=== PATIENT | female | born 1945 | race Caucasian/White ===

== ENCOUNTER 2017-12-02 19:23 | Inpatient (IN) | payer OTHER ==
[2017-12-02] MEDS ORDERED: ONDANSETRON 4 MG/2 ML VIAL ONE (19:28)
--- NOTE | 2017-12-02 19:50 | PDOC ---
History of Present Illness - General Chief Complaint: Blood Pressure Problem Stated Complaint: NEAR SYNCOPE Time Seen by Provider: 12/02/17 19:40 History Source: Patient Exam Limitations: No Limitations - History of Present Illness Initial Comments: 12/02/17 21:00 72f with pmh of hypotension presents to the ed for syncopal episode and vomiting after eating dinner and having a couple glasses of wine before losing consciousness. She had multiple episodes of the past where she passed out abruptly in the past. Also complains of multiple episodes of diarrhea (at least 5, every Past History - Past Medical History Allergies/Adverse Reactions: Allergies Allergy/AdvReac Type Severity Reaction Status Date / Time No Known Allergies Allergy Verified 07/19/12 21:16 Home Medications: Ambulatory Orders Simvastatin [Zocor] 5 mg PO HS 07/09/12 Valsartan/Hydrochlorothiazide [Diovan Hct 80-12.5 mg Tablet] 1 combo PO DAILY metFORMIN XR [Glucophage *Xr* -] 500 mg PO DAILY 07/09/12 Meclizine HCl [Antivert -] 25 mg PO TID #0 tablet 07/10/12 Ondansetron [Zofran] 4 mg PO BID PRN #10 tablet 07/10/12 COPD: No Diabetes: Yes HTN: Yes Hypercholesterolemia: Yes - Surgical History Appendectomy: Yes Cholecystectomy: Yes - Suicide/Smoking/Psychosocial Hx Smoking Status: No Smoking History: Unknown if ever smoked Number of Cigarettes Smoked Daily: 0 Review of Systems - Review of Systems Able to Perform ROS?: Yes Is the patient limited Amharic proficient: No Constitutional: No: Symptoms Reported HEENTM: No: Symptoms Reported Respiratory: No: Symptoms reported Cardiac (ROS): No: Symptoms Reported ABD/GI: Yes: See HPI : No: Symptoms Reported Neurological: No: Symptoms reported *Physical Exam - Vital Signs Last Vital Signs Temp Pulse Resp BP Pulse Ox 97.4 F L 62 20 66/39 92 L 12/02/17 19:35 12/02/17 19:35 12/02/17 19:35 12/02/17 19:35 12/02/17 19:35 - Physical Exam General Appearance: Yes: Nourished, Appropriately Dressed, Mild Distress HEENT: positive: EOMI, AYUSH, Normal ENT Inspection Respiratory/Chest: positive: Lungs Clear, Normal Breath Sounds. negative: Chest Tender, Respiratory Distress Cardiovascular: positive: Regular Rhythm, Regular Rate, S1, S2 Gastrointestinal/Abdominal: positive: Normal Bowel Sounds, Flat, Soft, Increased Bowel Sounds. negative: Tender Extremity: positive: Normal Capillary Refill, Normal Inspection, Normal Range of Motion Integumentary: positive: Dry, Warm, Pale Neurologic: positive: Fully Oriented, Alert, Normal Mood/Affect, Normal Response , Motor Strength / ED Treatment Course - LABORATORY CBC & Chemistry Diagram: 12/02/17 19:15 12/02/17 19:15 Medical Decision Making - Medical Decision Making 12/02/17 23:25 PAtient started to have episodes of bloody stools in the ED. Low BP possibly due to loss of fluids from vomiting and diarrhea. Ct head for syncope: nearly comply opacification of maxillary sinus consistent with chronic sinusitus. No intracranial bleed or mass. White count mildly elevated, potassium 3.2 corrected with oral K. Spoke to Dr. Otto who will admit to [facility]. EKG: Normal sinus rhythm, cannot rule out anterior infarct, age undetermined CT abdomen and pelvis pending. . 12/02/17 23:31 *DC/Admit/Observation/Transfer Diagnosis at time of Disposition: Bloody diarrhea, Hypotension, Syncope - Discharge Dispostion Condition at time of disposition: Stable Admit: Yes - Referrals - Patient Instructions - Post Discharge Activity
[2017-12-02 20:13] LABS: BASO % 0.5 % (0-2.0); HEMATOCRIT 36.6 % (32.4-45.2); HEMOGLOBIN 12.5 GM/dL (10.7-15.3); LYMPH % 50.4 % (8-40); MCH 30.6 pg (25.7-33.7); MCHC 34.2 g/dl (32.0-36.0); MEAN CELL VOLUME 89.5 fl (80-96); MEAN PLT VOLUME 9.5 fl (7.5-11.1); MONO % 4.1 % (3.8-10.2); PLATELET COUNT 294 K/MM3 (134-434); RBC 4.09 M/mm3 (3.60-5.2); RDW 14.7 % (11.6-15.6); WHITE BLOOD COUNT 13.7 K/mm3 (4.0-10.0)
[2017-12-02 20:35] LABS: ALBUMIN 4.1 g/dl (3.4-5.0); ANION GAP 9 (8-16); BILIRUBIN,TOTAL 0.3 mg/dL (0.2-1.0); BLOOD UREA NITROGEN 34 mg/dL (7-18); CALCIUM 9.8 mg/dL (8.5-10.1); CHLORIDE 105 mmol/L (98-107); CO2 23 mmol/L (21-32); CREATININE 1.4 mg/dL (0.55-1.02); GLUCOSE,RANDOM 147 mg/dL (74-106); POTASSIUM 3.2 mmol/L (3.5-5.1); SGOT/AST 32 U/L (15-37); SODIUM 137 mmol/L (136-145); TOT PROT 7.5 g/dl (6.4-8.2)
[2017-12-02 20:38] LABS: ALK PHOS 97 U/L (45-117); SGPT/ALT 34 U/L (12-78)
--- NOTE | 2017-12-02 20:44 | PDOC ---
Attending Attestation - Resident Resident Name: Martir Danielson - ED Attending Attestation I have performed the following: I have examined & evaluated the patient, The case was reviewed & discussed with the resident, I agree w/resident's findings & plan - HPI HPI: 12/03/17 03:15 Pt comes with syncope and nausea and vomiting. Labs in the ER are WNL, however , while in the ER pt [id number] a bloody stool, and she will be admitted for GI bleed with syncope. - Physicial Exam PE: 12/03/17 03:17 Agree with resident exam. - Medical Decision Making 12/02/17 22:06 Patient Name: BRIDGER MARIE THIS IS A PRELIMINARY REPORT FROM [facility] IMAGES: 131 EXAM DATE AND TIME: 2017-12-02 21:10:42 EXAM: CT Head Without Intravenous Contrast CLINICAL HISTORY: syncope TECHNIQUE: Axial computed tomography images of the head/brain without intravenous contrast. This CT exam was performed using one or more of the following dose reduction techniques: Automated exposure control, Adjustment of the mA and/or kV according to patient size, Use of iterative reconstruction technique. COMPARISON: No relevant prior studies available. FINDINGS: BRAIN: NO hemorrhage or mass. VENTRICLES: The ventricles are minimally prominent. BONES/JOINTS: Calvarium and skull base demonstrate NO acute changes. SOFT TISSUES: Minimal soft tissue contusion and/or edema is present. This is more prominent anteriorly on the RIGHT. SINUSES: Nearly complete opacification of the LEFT maxillary sinus. Calcification/increased density in the sinus. Thickening of the sinus bennett. MASTOID AIR CELLS: Unremarkable as visualized. NO significant mucosal thickening or opacification. IMPRESSION: 1. Nearly complete opacification of the LEFT maxillary sinus. Calcification/ increased density in the sinus. Thickening of the sinus bennett. Findings are consistent with chronic sinusitis. Please correlate with any known history and/or clinical findings. 2. Soft tissue edema and/or contusion as noted. 3. NO evidence of intracranial hemorrhage or mass. 12/03/17 03:17 Pt will be admitted for GI bleed. CT scan ordered and still pending 12/03/17 03:51 Patient Name: BRIDGER MARIE THIS IS A PRELIMINARY REPORT FROM [facility] DATE OF SERVICE: 2017-12-03 02:32:09 IMAGES: 471 EXAM: ABDOMEN \T\ PELVIS CT W/O CONTR HISTORY: Bloody diarrhea COMPARISON: None. FINDINGS: There is a 4 mm left lower lobe nodule. The visualized cardiac chambers are normal size and configuration. Status post cholecystectomy without biliary duct dilation. Normal unenhanced pancreas, spleen, adrenal glands and kidneys. The stomach and small bowel are normal. There is moderate inflammation of the descending colon and sigmoid which may be due to infection, inflammatory bowel disease or ischemia. Minimal diverticulosis is noted, but this does not appear to represent diverticulitis. No bowel obstruction, abscess or free air. There is no aortic aneurysm. There is no significant retroperitoneal lymphadenopathy. There is no evidence of appendicitis, although the appendix is not clearly visualized. The uterus and adnexal structures are normal. Urinary bladder is unremarkable. There is no pelvic free fluid. No discrete pelvic lymphadenopathy is identified. IMPRESSION: Moderate inflammation of the descending and sigmoid colon could be due to infection, inflammatory bowel disease or bowel ischemia 4 mm left lower lobe nodule should be compared to prior exams. THIS DOCUMENT HAS BEEN ELECTRONICALLY SIGNED <Jessica Leal - Last Filed: 12/03/17 03:52> Heart Score/ECG Review - ECG Intrepretation Comment:: 12/02/17 21:58 Normal sinus rhythm cannot rule out anterior infarct, age undetermined Abnormal ECG <Rocael Topete - Last Filed: 12/02/17 21:58>
[2017-12-02] MEDS ORDERED: POTASSIUM CITRATE/CITRIC ACID 2 MEQ/ML ML PO ONE (20:59)
[2017-12-02] MEDS ORDERED: POTASSIUM CHLORIDE TABS 20 MEQ TABLET.ER (FP) PO ONE ×2 (21:30→21:57)
[2017-12-02] MEDS ORDERED: SODIUM CHLORIDE 1,000 ML IV STA (21:52)
--- NOTE | 2017-12-02 23:15 | PN ---
Teaching Attending Note Name of Resident: Jairo Tariq ATTENDING PHYSICIAN STATEMENT I saw and evaluated the patient. I reviewed the resident's note and discussed the case with the resident. I agree with the resident's findings and plan as documented. SUBJECTIVE: 72 F with Pmhx. of DM, HLD, Hypotension who presents with loss of conscioussness. Notes she was having clams and finished one 1/2 glass of wine at a restaurant when she lost conscioussness for several seconds. Prior to that she had vomited at the restaurant and had diarrhea. She denies any chest pain, pressure, or palpitations prior. Denies any current chest pain, pressure or shortness of breath. States she had her first episode of bloody diarrhea in the hospital here. Denies any fevers or chills. No current nausea or vomiting. States she is currently having diarrhea with bright red blood mixed in. States she has had poor PO inake over the course of several days. Last Colonoscopy was 2 years ago and was negative according to pt.. ED COURSE: Pt. had one episode of blood mixed with stool as pe ER resident. OBJECTIVE: Physical: VS: Vital Signs Period Temp Pulse Resp BP Sys/Up Pulse Ox Last 24 Hr 97.4 F 62-86 20 66-104/39-60 92 GEN: NAD, Resting in bed, AA0X3 HEENT: NCAT, PERRL, Throat without erythema or exudates CARD: RRR S1, S2 RESP: CTAB ABD: Bsx4. NTD to palpation EXT:- C/C/E RECTAL: Pt. Deferred as she was on commode CBCD WBC 13.7 K/mm3 (4.0-10.0) H 12/02/17 19:15 RBC 4.09 M/mm3 (3.60-5.2) 12/02/17 19:15 Hgb 12.5 GM/dL (10.7-15.3) 12/02/17 19:15 Hct 36.6 % (32.4-45.2) 12/02/17 19:15 MCV 89.5 fl (80-96) 12/02/17 19:15 MCHC 34.2 g/dl (32.0-36.0) 12/02/17 19:15 RDW 14.7 % (11.6-15.6) 12/02/17 19:15 Plt Count 294 K/MM3 (134-434) 12/02/17 19:15 MPV 9.5 fl (7.5-11.1) 12/02/17 19:15 CMP Sodium 137 mmol/L (136-145) 12/02/17 19:15 Potassium 3.2 mmol/L (3.5-5.1) L 12/02/17 19:15 Chloride 105 mmol/L (98-107) 12/02/17 19:15 Carbon Dioxide 23 mmol/L (21-32) 12/02/17 19:15 Anion Gap 9 (8-16) 12/02/17 19:15 BUN 34 mg/dL (7-18) H 12/02/17 19:15 Creatinine 1.4 mg/dL (0.55-1.02) H 12/02/17 19:15 Creat Clearance w eGFR 36.86 (>60) 12/02/17 19:15 Random Glucose 147 mg/dL (74-106) H 12/02/17 19:15 Calcium 9.8 mg/dL (8.5-10.1) 12/02/17 19:15 Total Bilirubin 0.3 mg/dL (0.2-1.0) 12/02/17 19:15 AST 32 U/L (15-37) 12/02/17 19:15 ALT 34 U/L (12-78) 12/02/17 19:15 Alkaline Phosphatase 97 U/L (45-117) 12/02/17 19:15 Total Protein 7.5 g/dl (6.4-8.2) 12/02/17 19:15 Albumin 4.1 g/dl (3.4-5.0) 12/02/17 19:15 CARDIAC ENZYMES Creatine Kinase 90 IU/L (26-192) 12/02/17 19:15 Troponin I < 0.02 ng/ml (0.00-0.05) 12/02/17 19:15 EKG: NSR QtC 460 CXR:PENDING STOOL OCCULT: PENDING CT HEAD- Negative- PENDING FINAL READ ASSESSMENT AND PLAN: 72 F with Pmhx. of DM, HLD, Hypotension who presents with loss of conscioussness , being admitted for syncope and rectal bleed. 1.) Syncope - Most likley vasovagal ddx: Cardiogenic/Neurogenic - Orthostatic VS - Trend Trop/EKG - ECHO/Carotid US - IVF - KEEP MAP >75 2.) Diarrhea/Vomiting - Most likely Viral gastronteritis - Stool Cx - CT ABD wo Con - IVF 3.) Rectal Bleed - Infectious vs. Diverticular/LGIB/inflammation - FU Stool Occult - Trend H&H Q 8 - Keep HgB >7 - Coags, Type & Screen - GI consult 4.) DM - FS - RAISS - Hold Metformin 5.) TIM - U Lytes - IVF - Hold Metformin 6.) Hypokalemia - Replete - Check Mg2+ 7.) Dvt Ppx - Scds Place in Mp[facility]-Tele
[2017-12-03] MEDS ORDERED: SODIUM CHLORIDE 1,000 ML IV SCH (00:15)
[2017-12-03] MEDS ORDERED: POTASSIUM CHLORIDE TABS 20 MEQ TABLET.ER (FP) PO ONE ×2 (00:20→00:49)
[2017-12-03] MEDS ORDERED: ONDANSETRON 4 MG/2 ML VIAL IVPUSH PRN ×2 (00:21→05:33)
[2017-12-03] MEDS ORDERED: ONDANSETRON 4 MG/2 ML VIAL ONE (00:49)
[2017-12-03 01:21] LABS: INR 0.96 (0.82-1.09); PROTHROMBIN TIME (PATIENT) 10.9 SEC (9.7-13.0)
--- NOTE | 2017-12-03 01:21 | HP ---
CHIEF COMPLAINT: syncope PCP: Dr. Odell HISTORY OF PRESENT ILLNESS: Patient is a 72 yo F with a PMHx of HTN, presented to the ED after a syncopal episode after eating dinner at a restaurant. Patient said she finished eating dinner (clams) and was on her second glass of wine when she started having the "sweats". She said she felt chills and was nauseas and suddenly started having diarrhea and vomiting with abdominal pain. She later felt dizzy and had a syncopal episode which she said lasted around 30 seconds. Patient said she had similar episodes in the past but without the GI symptoms. She said she once became hypotensive in 2011 and lost consciousness requiring stitches to her head. Patient also noticed BRBPR once she arrived to the hospital. Patient also reports not drinking a lot of water lately. 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 She denies sob,chest pain, tongue biting, loss of bladder control, lightheadedness, dysuria, recent travel, sick contacts. Last colonoscopy was 2 years ago where she was told to come back in 5 years. ER course was notable for: (1) BP 66/39 (2) CT head: unremarkable (3) Blood mixed with stool as per ED resident Recent Travel: n/a PAST MEDICAL HISTORY: HTN Social History: Smoking: denies Alcohol: occasionally Drugs: denies Family History: Allergies No Known Allergies Allergy (Verified 07/19/12 21:16) HOME MEDICATIONS: Home Medications Medication Instructions Recorded Lisinopril/Hydrochlorothiazide 1 each PO DAILY 12/03/17 [Lisinopril-Hctz 10-12.5 mg Tab] Simvastatin 20 mg PO DAILY 12/03/17 REVIEW OF SYSTEMS CONSTITUTIONAL: chills, diaphoresis, Absent: fever, generalized weakness, malaise, loss of appetite, weight change HEENT: Absent: rhinorrhea, nasal congestion, throat pain, throat swelling, difficulty swallowing, mouth swelling, ear pain, eye pain, visual changes CARDIOVASCULAR: syncope Absent: chest pain, palpitations, irregular heart rate, lightheadedness, peripheral edema RESPIRATORY: Absent: shortness of breath, dyspnea with exertion, orthopnea, wheezing, stridor, hemoptysis GASTROINTESTINAL: abdominal pain, nausea, vomiting, hematochezia, diarrhea Absent: abdominal distension,constipation, melena, GENITOURINARY: Absent: dysuria, frequency, urgency, hesitancy, hematuria, flank pain, genital pain NEUROLOGIC: dizziness, headache Absent: focal weakness or paresthesias, unsteady gait, seizure, mental status changes, bladder or bowel incontinence PHYSICAL EXAMINATION Vital Signs - 24 hr 12/02/17 12/02/17 12/02/17 19:35 19:55 20:06 Temperature 97.4 F L Pulse Rate 62 Pulse Rate [ Right side Standing] Pulse Rate [ Right side Supine] Respiratory 20 Rate Blood Pressure 66/39 Blood Pressure 79/46 94/60 [Right Arm] Blood Pressure [Right side Standing] Blood Pressure [Right side Supine] O2 Sat by Pulse 92 L Oximetry (%) 12/02/17 12/02/17 20:19 22:38 Temperature Pulse Rate Pulse Rate [ 86 Right side Standing] Pulse Rate [ 76 Right side Supine] Respiratory Rate Blood Pressure Blood Pressure 104/50 [Right Arm] Blood Pressure 87/51 [Right side Standing] Blood Pressure 99/47 [Right side Supine] O2 Sat by Pulse Oximetry (%) GENERAL: Awake, alert, and fully oriented, in no acute distress. HEAD: Normal with no signs of trauma. EYES: Pupils equal, round and reactive to light, extraocular movements intact, sclera anicteric, conjunctiva clear. EARS, NOSE, THROAT:oropharynx clear without exudates. dry mucous membranes NECK: supple without lymphadenopathy, JVD, or masses. LUNGS: Breath sounds equal, clear to auscultation bilaterally. No wheezes, and no crackles. HEART: Regular rate and rhythm, normal S1 and S2 without murmur, rub or gallop. ABDOMEN: +BS, NT, ND, no rebound or guarding LOWER EXTREMITIES: 2+ pulses, warm, well-perfused. No calf tenderness. No peripheral edema. NEUROLOGICAL: Cranial nerves II-XII intact. Normal speech. Normal gait. Normal finger to nose. PSYCHIATRIC: Cooperative. Good eye contact. Appropriate mood and affect. Rectal: Patient deferred as she was sitting on commode. Visible bright red blood mixed with stool. Laboratory Results - last 24 hr 12/02/17 12/02/17 19:15 19:15 WBC 13.7 H RBC 4.09 Hgb 12.5 Hct 36.6 MCV 89.5 MCH 30.6 MCHC 34.2 RDW 14.7 Plt Count 294 MPV 9.5 Neutrophils % 42.0 L Lymphocytes % 50.4 H Monocytes % 4.1 Eosinophils % 3.0 Basophils % 0.5 Sodium 137 Potassium 3.2 L Chloride 105 Carbon Dioxide 23 Anion Gap 9 BUN 34 H Creatinine 1.4 H Creat Clearance w eGFR 36.86 Random Glucose 147 H Calcium 9.8 Total Bilirubin 0.3 AST 32 ALT 34 Alkaline Phosphatase 97 Creatine Kinase 90 Troponin I < 0.02 Total Protein 7.5 Albumin 4.1 EKG: NSR QtC 460 ASSESSMENT/PLAN: 72 F with Pmhx of HTN, who presents with loss of consciousness, being admitted for syncope, rectal bleeding, and vomiting. #Syncope -Likely orthostatic -orthostatic vital signs -IV fluids Ns @ 100ml/ hour -Trend Trops: first set neg -Echo in the AM -Carotid doppler -Cardiac monitoring -Keep MAP >75 -CT negative. Pending final read. #Diarrhea/Vomiting -Likely gastroenteritis -IV fluids -Consult GI: Dr. Beach -NPO -stool studies -CT abdomen w/o contrast #Rectal bleeding -Infectious vs Diverticulitis -FOBT -Monitor CBC -GI consulted #Hypokalemia -replete as needed -Follow magnesium -FU am labs #TIM -IV fluids -urine lytes, cr -avoid nephrotoxins #HTN -now hypotensive -Hold Lisinopril -Med rec patient unsure of dose #HLD -Cont. Simvastatin 10mg #FEN -NS @ 100ml/hour -hypokalemia -NPO #DVT -SCDS Admit tele Visit type - Emergency Visit Emergency Visit: Yes ED Registration Date: 12/02/17 Care time: The patient presented to the Emergency Department on the above date and was hospitalized for further evaluation of their emergent condition. - New Patient This patient is new to me today: Yes Date on this admission: 12/03/17 - Critical Care Critical Care patient: No Hospitalist Screening - Colonoscopy Questionnaire Colonoscopy Questionnaire: Colonoscopy Questionnaire - Patient: 50 - 75 years old and never had a screening colonoscopy: No History of colon or rectal polyps, or CA: Unknown History of IBD, Crohn's disease or UC: Unknown History of abdominal radiation therapy as a child: Unknown - Relative: 1 with colon or rectal CA, or polyps at age 60 or younger: Unknown Colon or rectal CA diagnosed at age 45 or younger: Unknown Multiple relatives with colon or rectal CA: Unknown - Outcome: Screening Result: Negative Screen
[2017-12-03 05:52] LABS: HEMATOCRIT 32.9 % (32.4-45.2); MCH 29.9 pg (25.7-33.7); MCHC 33.4 g/dl (32.0-36.0); MEAN CELL VOLUME 89.5 fl (80-96); MEAN PLT VOLUME 8.8 fl (7.5-11.1); PLATELET COUNT 256 K/MM3 (134-434); RBC 3.68 M/mm3 (3.60-5.2); RDW 14.6 % (11.6-15.6); WHITE BLOOD COUNT 15.6 K/mm3 (4.0-10.0)
[2017-12-03 06:01] LABS: INR 1.04 (0.82-1.09); PROTHROMBIN TIME (PATIENT) 11.7 SEC (9.7-13.0)
[2017-12-03 06:14] LABS: ALBUMIN 3.6 g/dl (3.4-5.0); ALK PHOS 78 U/L (45-117); ANION GAP 7 (8-16); BILIRUBIN,TOTAL 0.3 mg/dL (0.2-1.0); BLOOD UREA NITROGEN 29 mg/dL (7-18); CALCIUM 8.7 mg/dL (8.5-10.1); CHLORIDE 108 mmol/L (98-107); CO2 24 mmol/L (21-32); GLUCOSE,RANDOM 141 mg/dL (74-106); MAGNESIUM 1.4 mg/dL (1.8-2.4); PHOSPHOROUS 2.6 mg/dL (2.5-4.9); POTASSIUM 4.8 mmol/L (3.5-5.1); SGOT/AST 43 U/L (15-37); SGPT/ALT 50 U/L (12-78); SODIUM 139 mmol/L (136-145); TOT PROT 6.3 g/dl (6.4-8.2)
[2017-12-03] MEDS ORDERED: SODIUM CHLORIDE 1,000 ML IV STA (06:41)
[2017-12-03 08:05] LABS: CHOLESTEROL 136 mg/dL (50-200); HDL CHOLESTEROL 53 mg/dL (40-60); TRIGLYCERIDES 68 mg/dL (35-160)
--- NOTE | 2017-12-03 08:55 | PN ---
Progress Note (short form) - Note Progress Note: ID Full note dictated Microbiology Selected Entries 12/02/17 12/03/17 19:35 05:41 Temperature 97.4 F L Pulse Rate [ 90 Left] Respiratory 16 Rate Blood Pressure 142/60 [Right Arm] O2 Sat by Pulse 99 Oximetry (%) Laboratory Tests 12/02/17 12/02/17 12/03/17 19:15 19:15 05:43 WBC 13.7 H 15.6 H Hgb 12.5 11.0 D Hct 36.6 32.9 Plt Count 294 256 Basophils % 0.5 BUN 34 H Creatinine 1.4 H Creat Clearance w eGFR 36.86 Random Glucose 147 H Lactic Acid Total Bilirubin 0.3 AST 32 ALT 34 Alkaline Phosphatase 97 12/03/17 12/03/17 05:43 07:45 WBC Hgb Hct Plt Count Basophils % BUN Creatinine Creat Clearance w eGFR Random Glucose Lactic Acid 2.2 H* 1.2 Total Bilirubin AST ALT Alkaline Phosphatase Assessment Observe off antibiotics and await GI evaluation Zeny SHEARER Problem List - Problems (1) GI bleeding Code(s): K92.2 - GASTROINTESTINAL HEMORRHAGE, UNSPECIFIED (2) Syncope Code(s): R55 - SYNCOPE AND COLLAPSE (3) Gastroenteritis Code(s): K52.9 - NONINFECTIVE GASTROENTERITIS AND COLITIS, UNSPECIFIED
[2017-12-03 08:58] LABS: URINE APPEARANCE CLEAR; URINE BILIRUBIN NEGATIVE (<2.0 mg/dL); URINE BLOOD 2+ (NEGATIVE); URINE COLOR STRAW; URINE GLUCOSE (UA) NEGATIVE (NEGATIVE); URINE KETONE NEGATIVE (NEGATIVE); URINE LEUK ESTERASE TRACE (NEGATIVE); URINE NITRITE NEGATIVE (NEGATIVE); URINE PROTEIN NEGATIVE (NEGATIVE); URINE UROBILINOGEN NEGATIVE mg/dL (0.2-1.0)
[2017-12-03 09:09] LABS: EPI CELLS RARE /HPF (FEW); URINE BACTERIA RARE /hpf (NONE SEEN); URINE MUCUS RARE
[2017-12-03] MEDS ORDERED: amLODIPine BESYLATE 5 MG TABLET (FP) PO SCH (10:00)
[2017-12-03] MEDS ORDERED: INSULIN SLIDING SCALE (NOVOLOG) 1 VIAL SQ SCH (10:00)
--- NOTE | 2017-12-03 10:10 | CON.GI ---
Consult Consult Specialty:: GI Reason for Consultation:: hematochezia - History of Present Illness History of Present Illness: chart reviewed. Events noted. Per initial intake: Patient is a 72 yo F with a PMHx of HTN, presented to the ED after a syncopal episode after eating dinner at a restaurant. Patient said she finished eating dinner (clams) and was on her second glass of wine when she started having the "sweats". She said she felt chills and was nauseas and suddenly started having diarrhea and vomiting with abdominal pain. She later felt dizzy and had a syncopal episode which she said lasted around 30 seconds. Patient said she had similar episodes in the past but without the GI symptoms. She said she once became hypotensive in 2011 and lost consciousness requiring stitches to her head. Patient also noticed BRBPR once she arrived to the hospital. Patient also reports not drinking a lot of water lately. 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 She denies sob,chest pain, tongue biting, loss of bladder control, lightheadedness, dysuria, recent travel, sick contacts. Last colonoscopy was 2 years ago where she was told to come back in 5 years. At the time of the encounter, the patient appears not in distress, pain 3, comfortable. Normal vital signs. Reports no new episodes of hematochezia. Denies dysphagia, odynophagia, abdominal pain, unintentional weight loss. Denies change in stool caliber. A colonoscopy 2.5 y ago showed diverticulosis. No polyps. 5 year follow-up was recommended. Reports no personal history of colon polyps, chronic colitis. Reports noncontributory family history. Mild leukocytosis with shift to the left, normal hemoglobin on admission and this morning. - History Source History Provided By: Patient, Medical Record - Smoking History Smoking history: Unknown if ever smoked Aproximately how many cigarettes per day: 0 Home Medications - Allergies Allergies/Adverse Reactions: Allergies Allergy/AdvReac Type Severity Reaction Status Date / Time No Known Allergies Allergy Verified 07/19/12 21:16 - Home Medications Home Medications: Ambulatory Orders Lisinopril/Hydrochlorothiazide [Lisinopril-Hctz 10-12.5 mg Tab] 1 each PO DAILY 12/03/17 Simvastatin 10 mg PO DAILY 12/03/17 Family Disease History - Family Disease History Family History: Unremarkable Review of Systems Findings/Remarks: as per H&P and HPI Physical Exam-GI Vital Signs: Vital Signs Temperature 97.4 F L 12/02/17 19:35 Pulse Rate 90 12/03/17 05:41 Respiratory Rate 16 12/03/17 05:41 Blood Pressure 142/60 12/03/17 05:41 O2 Sat by Pulse Oximetry (%) 99 12/03/17 05:41 Constitutional: Yes: Well Nourished, No Distress, Calm Eyes: Yes: Conjunctiva Clear HENT: Yes: Atraumatic Neck: Yes: Supple Cardiovascular: Yes: Regular Rate and Rhythm Respiratory: Yes: Regular Gastrointestinal Inspection: No: Ascites, Distention ...Auscultate: Yes: Normoactive Bowel Sounds ...Palpate: Yes: Tenderness. No: Firm/Rigid, Guarding Neurological: Yes: Alert, Oriented Labs: CBC, BMP 12/03/17 05:43 12/03/17 05:43 INR, PTT INR 1.04 (0.82-1.09) 12/03/17 05:43 Laboratory Last Values WBC 15.6 K/mm3 (4.0-10.0) H 12/03/17 05:43 RBC 3.68 M/mm3 (3.60-5.2) 12/03/17 05:43 Hgb 11.0 GM/dL (10.7-15.3) D 12/03/17 05:43 Hct 32.9 % (32.4-45.2) 12/03/17 05:43 MCV 89.5 fl (80-96) 12/03/17 05:43 MCH 29.9 pg (25.7-33.7) 12/03/17 05:43 MCHC 33.4 g/dl (32.0-36.0) 12/03/17 05:43 RDW 14.6 % (11.6-15.6) 12/03/17 05:43 Plt Count 256 K/MM3 (134-434) 12/03/17 05:43 MPV 8.8 fl (7.5-11.1) 12/03/17 05:43 Neutrophils % 42.0 % (42.8-82.8) L 12/02/17 19:15 Lymphocytes % 50.4 % (8-40) H 12/02/17 19:15 Monocytes % 4.1 % (3.8-10.2) 12/02/17 19:15 Eosinophils % 3.0 % (0-4.5) 12/02/17 19:15 Basophils % 0.5 % (0-2.0) 12/02/17 19:15 PT with INR 11.70 SEC (9.7-13.0) 12/03/17 05:43 INR 1.04 (0.82-1.09) 12/03/17 05:43 PTT (Actin FS) 20.0 SECONDS (26.9-34.4) L 12/03/17 01:01 Sodium 139 mmol/L (136-145) 12/03/17 05:43 Potassium 4.8 mmol/L (3.5-5.1) 12/03/17 05:43 Chloride 108 mmol/L (98-107) H 12/03/17 05:43 Carbon Dioxide 24 mmol/L (21-32) 12/03/17 05:43 Anion Gap 7 (8-16) L 12/03/17 05:43 BUN 29 mg/dL (7-18) H 12/03/17 05:43 Creatinine 1.0 mg/dL (0.55-1.02) 12/03/17 05:43 Creat Clearance w eGFR 54.35 (>60) 12/03/17 05:43 Random Glucose 141 mg/dL (74-106) H 12/03/17 05:43 Lactic Acid 1.2 mmol/L (0.0-2.0) 12/03/17 07:45 Calcium 8.7 mg/dL (8.5-10.1) 12/03/17 05:43 Phosphorus 2.6 mg/dL (2.5-4.9) 12/03/17 05:43 Magnesium 1.4 mg/dL (1.8-2.4) L 12/03/17 05:43 Total Bilirubin 0.3 mg/dL (0.2-1.0) 12/03/17 05:43 AST 43 U/L (15-37) H 12/03/17 05:43 ALT 50 U/L (12-78) 12/03/17 05:43 Alkaline Phosphatase 78 U/L (45-117) 12/03/17 05:43 Creatine Kinase 90 IU/L (26-192) 12/02/17 19:15 Troponin I 0.02 ng/ml (0.00-0.05) 12/03/17 02:00 Total Protein 6.3 g/dl (6.4-8.2) L 12/03/17 05:43 Albumin 3.6 g/dl (3.4-5.0) 12/03/17 05:43 Triglycerides 68 mg/dL (35-160) 12/03/17 05:43 Cholesterol 136 mg/dL (50-200) 12/03/17 05:43 Total LDL Cholesterol 80 mg/dL (5-100) 12/03/17 05:43 HDL Cholesterol 53 mg/dL (40-60) 12/03/17 05:43 Urine Color Straw 12/03/17 08:50 Urine Appearance Clear 12/03/17 08:50 Urine pH 5.0 (5.0-8.0) 12/03/17 08:50 Ur Specific [place] 1.008 (1.001-1.035) 12/03/17 08:50 Urine Protein Negative (NEGATIVE) 12/03/17 08:50 Urine Glucose (UA) Negative (NEGATIVE) 12/03/17 08:50 Urine Ketones Negative (NEGATIVE) 12/03/17 08:50 Urine Blood 2+ (NEGATIVE) H 12/03/17 08:50 Urine Nitrite Negative (NEGATIVE) 12/03/17 08:50 Urine Bilirubin Negative (<2.0 mg/dL) 12/03/17 08:50 Urine Urobilinogen Negative mg/dL (0.2-1.0) 12/03/17 08:50 Ur Leukocyte Esterase Trace (NEGATIVE) 12/03/17 08:50 Urine WBC (Auto) 3 /hpf (3-5) 12/03/17 08:50 Urine RBC (Auto) 4 /hpf (0-3) 12/03/17 08:50 Ur Epithelial Cells Rare /HPF (FEW) 12/03/17 08:50 Urine Bacteria Rare /hpf (NONE SEEN) 12/03/17 08:50 Urine Mucus Rare 12/03/17 08:50 Ur Random Sodium 106 MMOL/L 12/03/17 01:40 Ur Random Potassium 55.8 MMOL/L 12/03/17 01:40 Ur Random Chloride 136 MMOL/L 12/03/17 01:40 Urine Creatinine 65.0 mg/dL (20-320) 12/03/17 01:40 Stool Occult Blood Positive (NEGATIVE) 12/02/17 08:50 Blood Type O POSITIVE 12/03/17 01:01 Antibody Screen Negative 12/03/17 01:01 Imaging - Results Cat Scan: Pending, Report Reviewed Problem List - Problems (1) Enterocolitis Code(s): K52.9 - NONINFECTIVE GASTROENTERITIS AND COLITIS, UNSPECIFIED (2) Diverticulosis Code(s): K57.90 - DVRTCLOS OF INTEST, PART UNSP, W/O PERF OR ABSCESS W/O BLEED (3) Acute diverticulitis Code(s): K57.92 - DVTRCLI OF INTEST, PART UNSP, W/O PERF OR ABSCESS W/O BLEED (4) Hematochezia Code(s): K92.1 - MELENA Assessment/Plan a 72-year-old female with acute onset hematochezia and abdominal findings suggestive of acute colitis. Mild leukocytosis on admission. Normal hemoglobin, BUN and creatinine. Normal vital signs. Afebrile. A colonoscopy 2 years ago revealed diverticulosis. Patient clinically appears stable. Follow formal CT report. Stool for pathogens. Bowel rest. IV hydration. Antibiotics, unless OH157:h7 Colonoscopy in 4-6 weeks Discussed with the patient.
--- NOTE | 2017-12-03 10:42 | CONS ---
DATE OF CONSULTATION: HISTORY: This is a 72-year-old female who I am asked to see for evaluation of leukocytosis. She is a known diabetic with hyperlipidemia and a history of hypotension who notes that she was eating and drinking wine at a restaurant when she states she lost consciousness for several seconds. She apparently vomited at the restaurant and had diarrhea, according to the notes. She had no chest pain or palpitations and has no history of prior coronary artery disease. According to the notes, the patient had some bloody diarrhea upon arrival here. She had no fever, chills, abdominal pain, vomiting, or nausea. Bright red blood was noted, according to the notes on admitting, and she has been afebrile. PAST MEDICAL HISTORY: As noted above. CURRENT MEDICATIONS: Include Lipitor, Protonix. ALLERGIES: None known. SOCIAL HISTORY: Nonsmoker. No history of substance abuse. Occasional alcohol. FAMILY HISTORY: Noncontributory. REVIEW OF SYSTEMS: Respiratory: No cough, shortness of breath. Cardiac: Syncopal episode. No palpitations, history of murmur or chest pain. Gastrointestinal: Note history of present illness. Genitourinary: No dysuria, hematuria. PHYSICAL EXAMINATION: Vital Signs: The patient's temperature is 97.4, pulse 62, blood pressure initially 66/39, currently 142/60, respirations 16, O2 saturation 99%. General: She is alert and in no acute distress. Neck: Supple. Lungs: Clear to percussion and auscultation. Heart: S1, S2. Regular rhythm without audible murmur. Abdomen: Soft, nontender. Normoactive bowel sounds. No guarding or rebound or hepatomegaly. Extremities: No clubbing, cyanosis, or edema. LABORATORY DATA: The white count is 13.7, hemoglobin 12.5, hematocrit 36.6, platelets 292. Differential 42% polys, 50 lymphocytes, 4 monocytes, 3 eosinophils. BUN on admission 34, creatinine 1.4, lactic acid 2.2. Liver enzymes within normal limits. Urinalysis screening currently unavailable. Two sets of blood cultures obtained earlier today pending. Stool culture has been sent. CT of the abdomen currently no official reading available. ASSESSMENT: A 72-year-old female who presents with a syncopal episode with hypotension most likely on the basis of either vasovagal and/or intravascular volume depletion. Clinically, she appears improved from admission with improvement of BUN and creatinine with hydration. She has no fever to suggest infection. Her white count is elevated and could be on the basis of stress response or could be completely unrelated to her reason for admission now. PLAN: At this point, cultures have been obtained and are currently pending. I would observe her off of antibiotics at the current time and await GI consultation. I see that surgical consultation with Dr. Lock for "ischemic bowel" has been also requested and is currently pending. TIANA GUAMAN M.D. [id number]
[2017-12-03] MEDS: PANTOPRAZOLE SODIUM 40 MG VIAL IVPUSH SCH (11:06)
[2017-12-03] MEDS ORDERED: PANTOPRAZOLE SODIUM 40 MG VIAL ONE (11:07)
--- NOTE | 2017-12-03 12:09 | EKG ---
Test Reason : Blood Pressure : / mmHG Vent. Rate : 088 BPM Atrial Rate : 088 BPM P-R Int : 124 ms QRS Dur : 084 ms QT Int : 398 ms P-R-T Axes : 036 024 058 degrees QTc Int : 481 ms NORMAL SINUS RHYTHM NORMAL ECG WHEN COMPARED WITH ECG OF 02-DEC-2017 19:46, NO SIGNIFICANT CHANGE WAS FOUND Confirmed by YAW CORONADO MD ([id number]) on 12/03/2017 12:09:11 PM Referred By: Confirmed By:YAW CORONADO MD
--- NOTE | 2017-12-03 12:16 | EKG ---
Test Reason : Blood Pressure : / mmHG Vent. Rate : 062 BPM Atrial Rate : 062 BPM P-R Int : 130 ms QRS Dur : 088 ms QT Int : 454 ms P-R-T Axes : 033 015 059 degrees QTc Int : 460 ms NORMAL SINUS RHYTHM CANNOT RULE OUT ANTERIOR INFARCT , AGE UNDETERMINED ABNORMAL ECG NO PREVIOUS ECGS AVAILABLE Confirmed by YAW CORONADO MD ([id number]) on 12/03/2017 12:16:15 PM Referred By: Confirmed By:YAW CORONADO MD
--- NOTE | 2017-12-03 12:40 | PN ---
Physical Exam: SUBJECTIVE: Patient seen and examined OBJECTIVE: Vital Signs Period Temp Pulse Resp BP Sys/Up Pulse Ox Last 24 Hr 97.4 F 62-90 16-20 66-142/39-60 92-99 GENERAL: The patient is awake, alert, and fully oriented, in no acute distress. HEAD: Normal with no signs of trauma. EYES: PERRL, extraocular movements intact, sclera anicteric, conjunctiva clear. No ptosis. ENT: Ears normal, nares patent, oropharynx clear without exudates, moist mucous membranes. NECK: Trachea midline, full range of motion, supple. LUNGS: Breath sounds equal, clear to auscultation bilaterally, no wheezes, no crackles, no accessory muscle use. HEART: Regular rate and rhythm, S1, S2 without murmur, rub or gallop. ABDOMEN: Soft, nontender, nondistended, normoactive bowel sounds, no guarding, no rebound, no hepatosplenomegaly, no masses. EXTREMITIES: 2+ pulses, warm, well-perfused, no edema. NEUROLOGICAL: Cranial nerves II through XII grossly intact. Normal speech, gait not observed. PSYCH: Normal mood, normal affect. SKIN: Warm, dry, normal turgor, no rashes or lesions noted Laboratory Results - last 24 hr 12/02/17 12/02/17 12/02/17 08:50 19:15 19:15 WBC 13.7 H RBC 4.09 Hgb 12.5 Hct 36.6 MCV 89.5 MCH 30.6 MCHC 34.2 RDW 14.7 Plt Count 294 MPV 9.5 Neutrophils % 42.0 L Lymphocytes % 50.4 H Monocytes % 4.1 Eosinophils % 3.0 Basophils % 0.5 PT with INR INR PTT (Actin FS) Sodium 137 Potassium 3.2 L Chloride 105 Carbon Dioxide 23 Anion Gap 9 BUN 34 H Creatinine 1.4 H Creat Clearance w eGFR 36.86 Random Glucose 147 H Lactic Acid Calcium 9.8 Phosphorus Magnesium Total Bilirubin 0.3 AST 32 ALT 34 Alkaline Phosphatase 97 Creatine Kinase 90 Troponin I < 0.02 Total Protein 7.5 Albumin 4.1 Triglycerides Cholesterol Total LDL Cholesterol HDL Cholesterol Urine Color Urine Appearance Urine pH Ur Specific [place] Urine Protein Urine Glucose (UA) Urine Ketones Urine Blood Urine Nitrite Urine Bilirubin Urine Urobilinogen Ur Leukocyte Esterase Urine WBC (Auto) Urine RBC (Auto) Ur Epithelial Cells Urine Bacteria Urine Mucus Ur Random Sodium Ur Random Potassium Ur Random Chloride Urine Creatinine Stool Occult Blood Positive Blood Type Antibody Screen 12/03/17 12/03/17 12/03/17 01:01 01:01 01:40 WBC RBC Hgb Hct MCV MCH MCHC RDW Plt Count MPV Neutrophils % Lymphocytes % Monocytes % Eosinophils % Basophils % PT with INR 10.90 INR 0.96 PTT (Actin FS) 20.0 L Sodium Potassium Chloride Carbon Dioxide Anion Gap BUN Creatinine Creat Clearance w eGFR Random Glucose Lactic Acid Calcium Phosphorus Magnesium Total Bilirubin AST ALT Alkaline Phosphatase Creatine Kinase Troponin I Total Protein Albumin Triglycerides Cholesterol Total LDL Cholesterol HDL Cholesterol Urine Color Urine Appearance Urine pH Ur Specific [place] Urine Protein Urine Glucose (UA) Urine Ketones Urine Blood Urine Nitrite Urine Bilirubin Urine Urobilinogen Ur Leukocyte Esterase Urine WBC (Auto) Urine RBC (Auto) Ur Epithelial Cells Urine Bacteria Urine Mucus Ur Random Sodium 106 Ur Random Potassium 55.8 Ur Random Chloride 136 Urine Creatinine 65.0 Stool Occult Blood Blood Type O POSITIVE Antibody Screen Negative 12/03/17 12/03/17 12/03/17 02:00 05:43 05:43 WBC 15.6 H RBC 3.68 Hgb 11.0 D Hct 32.9 MCV 89.5 MCH 29.9 MCHC 33.4 RDW 14.6 Plt Count 256 MPV 8.8 Neutrophils % Lymphocytes % Monocytes % Eosinophils % Basophils % PT with INR INR PTT (Actin FS) Sodium 139 Potassium 4.8 Chloride 108 H Carbon Dioxide 24 Anion Gap 7 L BUN 29 H Creatinine 1.0 Creat Clearance w eGFR 54.35 Random Glucose 141 H Lactic Acid Calcium 8.7 Phosphorus 2.6 Magnesium 1.4 L Total Bilirubin 0.3 AST 43 H ALT 50 Alkaline Phosphatase 78 Creatine Kinase Troponin I 0.02 Total Protein 6.3 L Albumin 3.6 Triglycerides Cholesterol Total LDL Cholesterol HDL Cholesterol Urine Color Urine Appearance Urine pH Ur Specific [place] Urine Protein Urine Glucose (UA) Urine Ketones Urine Blood Urine Nitrite Urine Bilirubin Urine Urobilinogen Ur Leukocyte Esterase Urine WBC (Auto) Urine RBC (Auto) Ur Epithelial Cells Urine Bacteria Urine Mucus Ur Random Sodium Ur Random Potassium Ur Random Chloride Urine Creatinine Stool Occult Blood Blood Type Antibody Screen 12/03/17 12/03/17 12/03/17 05:43 05:43 05:43 WBC RBC Hgb Hct MCV MCH MCHC RDW Plt Count MPV Neutrophils % Lymphocytes % Monocytes % Eosinophils % Basophils % PT with INR 11.70 INR 1.04 PTT (Actin FS) Sodium Potassium Chloride Carbon Dioxide Anion Gap BUN Creatinine Creat Clearance w eGFR Random Glucose Lactic Acid 2.2 H* Calcium Phosphorus Magnesium Total Bilirubin AST ALT Alkaline Phosphatase Creatine Kinase Troponin I Total Protein Albumin Triglycerides 68 Cholesterol 136 Total LDL Cholesterol 80 HDL Cholesterol 53 Urine Color Urine Appearance Urine pH Ur Specific [place] Urine Protein Urine Glucose (UA) Urine Ketones Urine Blood Urine Nitrite Urine Bilirubin Urine Urobilinogen Ur Leukocyte Esterase Urine WBC (Auto) Urine RBC (Auto) Ur Epithelial Cells Urine Bacteria Urine Mucus Ur Random Sodium Ur Random Potassium Ur Random Chloride Urine Creatinine Stool Occult Blood Blood Type Antibody Screen 12/03/17 12/03/17 07:45 08:50 WBC RBC Hgb Hct MCV MCH MCHC RDW Plt Count MPV Neutrophils % Lymphocytes % Monocytes % Eosinophils % Basophils % PT with INR INR PTT (Actin FS) Sodium Potassium Chloride Carbon Dioxide Anion Gap BUN Creatinine Creat Clearance w eGFR Random Glucose Lactic Acid 1.2 Calcium Phosphorus Magnesium Total Bilirubin AST ALT Alkaline Phosphatase Creatine Kinase Troponin I Total Protein Albumin Triglycerides Cholesterol Total LDL Cholesterol HDL Cholesterol Urine Color Straw Urine Appearance Clear Urine pH 5.0 Ur Specific [place] 1.008 Urine Protein Negative Urine Glucose (UA) Negative Urine Ketones Negative Urine Blood 2+ H Urine Nitrite Negative Urine Bilirubin Negative Urine Urobilinogen Negative Ur Leukocyte Esterase Trace Urine WBC (Auto) 3 Urine RBC (Auto) 4 Ur Epithelial Cells Rare Urine Bacteria Rare Urine Mucus Rare Ur Random Sodium Ur Random Potassium Ur Random Chloride Urine Creatinine Stool Occult Blood Blood Type Antibody Screen Active Medications Generic Name Dose Route Start Last Admin Trade Name Freq PRN Reason Stop Dose Admin Atorvastatin Calcium 10 mg 12/03/17 22:00 Lipitor - PO HS RESHMA Ondansetron HCl 4 mg 12/03/17 05:33 Zofran Injection IVPUSH Q8H PRN NAUSEA AND/OR VOMITING Pantoprazole Sodium 40 mg 12/03/17 10:00 12/03/17 11:06 Protonix Iv IVPUSH 40 mg DAILY RESHMA Administration ASSESSMENT/PLAN:
[2017-12-03 16:09] VITALS: BMI 28.3
--- NOTE | 2017-12-03 20:08 | CONSULT ---
- Consultation REQUESTING PROVIDER: Toby FERMENTER HELPER CONSULT REQUEST: We have been asked to surgically evaluate this patient for abdominal pain PCP:Grisel Luis HISTORY OF PRESENT ILLNESS: CTSP for evaluation and management of nausea and vomiting and abdominal pain which started after eating and having some alcohol; it was associated w/ a near syncopal episode; sine arrival to the ER she feels better; this happened once before; she had colonoscopy w/in the past 2 years. PMHx: HTN; HLD PSHx: appendectomy and cholecystectomy Home Medications Medication Instructions Recorded Lisinopril/Hydrochlorothiazide 0.5 tab PO DAILY 12/03/17 [Lisinopril-Hctz 10-12.5 mg Tab] Simvastatin 10 mg PO DAILY 12/03/17 Allergies Allergy/AdvReac Type Severity Reaction Status Date / Time No Known Allergies Allergy Verified 07/19/12 21:16 PHYSICAL EXAM: GENERAL: Awake, alert, and fully oriented, in no acute distress. HEAD: Normal with no signs of trauma. EYES: PERRL, sclera anicteric, conjunctiva clear. NECK: Normal ROM, supple without lymphadenopathy, JVD, or masses. ABDOMEN: Soft, nontender, not distended, normoactive bowel sounds, no guarding, no rebound, no masses. No organomegaly. No hernias MUSCULOSKELETAL: Normal ROM at all joints. No bony deformities or tenderness. No CVA tenderness. UPPER EXTREMITIES: 2+ pulses, warm, well-perfused. No cyanosis. Cap refill <2 seconds. No peripheral edema. LOWER EXTREMITIES: 2+ pulses, warm, well-perfused. No calf tenderness. No peripheral edema. NEUROLOGICAL: Normal speech, gait not observed. PSYCH: Cooperative. Good eye contact. Appropriate mood and affect. SKIN: Warm, dry, normal turgor, no rashes or lesions noted. Vital Signs Temperature 98.6 F 12/03/17 18:08 Pulse Rate 88 12/03/17 18:08 Respiratory Rate 18 12/03/17 18:08 Blood Pressure 122/80 12/03/17 18:08 O2 Sat by Pulse Oximetry (%) 98 12/03/17 14:35 Lab Results WBC 15.6 K/mm3 (4.0-10.0) H 12/03/17 05:43 RBC 3.68 M/mm3 (3.60-5.2) 12/03/17 05:43 Hgb 11.0 GM/dL (10.7-15.3) D 12/03/17 05:43 Hct 32.9 % (32.4-45.2) 12/03/17 05:43 MCV 89.5 fl (80-96) 12/03/17 05:43 MCHC 33.4 g/dl (32.0-36.0) 12/03/17 05:43 RDW 14.6 % (11.6-15.6) 12/03/17 05:43 Plt Count 256 K/MM3 (134-434) 12/03/17 05:43 Sodium 139 mmol/L (136-145) 12/03/17 05:43 Potassium 4.8 mmol/L (3.5-5.1) 12/03/17 05:43 Chloride 108 mmol/L (98-107) H 12/03/17 05:43 Carbon Dioxide 24 mmol/L (21-32) 12/03/17 05:43 Anion Gap 7 (8-16) L 12/03/17 05:43 BUN 29 mg/dL (7-18) H 12/03/17 05:43 Creatinine 1.0 mg/dL (0.55-1.02) 12/03/17 05:43 Random Glucose 141 mg/dL (74-106) H 12/03/17 05:43 Calcium 8.7 mg/dL (8.5-10.1) 12/03/17 05:43 Blood Type O POSITIVE 12/03/17 01:01 Antibody Screen Negative 12/03/17 01:01 INR 1.04 (0.82-1.09) 12/03/17 05:43 CT a/p reviewed IMP: no evidence of an acute surgical abdomen; mesenteric ischemiA; MOST LIKELY COLOITIS PLAN: NPO/IVF; GI evaluation (done) whose suggestions I concur with. Didier Lock MD FACS Visit type - Case Type Case Type: ED Admission - Emergency Emergency Visit: Yes ED Registration Date: 12/02/17 Care time: The patient presented to the Emergency Department on the above date and was hospitalized for further evaluation of their emergent condition. - New patient This patient is new to me today: Yes Date on this admission: 12/03/17 - Critical Care Critical Care patient: No
[2017-12-03] MEDS ORDERED: ATORVASTATIN CA 10 MG TABLET (FP) PO SCH (22:00)
--- NOTE | 2017-12-04 07:58 | PN ---
Physical Exam: SUBJECTIVE: Patient seen OBJECTIVE: Vital Signs Period Temp Pulse Resp BP Sys/Up Pulse Ox Last 24 Hr 98.0 F-98.6 F 60-94 18-20 122-156/63-81 95-98 Laboratory Results - last 24 hr 12/02/17 12/03/17 12/03/17 08:50 05:43 07:45 Lactic Acid 1.2 Triglycerides 68 Cholesterol 136 Total LDL Cholesterol 80 HDL Cholesterol 53 Urine Color Urine Appearance Urine pH Ur Specific [place] Urine Protein Urine Glucose (UA) Urine Ketones Urine Blood Urine Nitrite Urine Bilirubin Urine Urobilinogen Ur Leukocyte Esterase Urine WBC (Auto) Urine RBC (Auto) Ur Epithelial Cells Urine Bacteria Urine Mucus Stool Occult Blood Positive 12/03/17 08:50 Lactic Acid Triglycerides Cholesterol Total LDL Cholesterol HDL Cholesterol Urine Color Straw Urine Appearance Clear Urine pH 5.0 Ur Specific [place] 1.008 Urine Protein Negative Urine Glucose (UA) Negative Urine Ketones Negative Urine Blood 2+ H Urine Nitrite Negative Urine Bilirubin Negative Urine Urobilinogen Negative Ur Leukocyte Esterase Trace Urine WBC (Auto) 3 Urine RBC (Auto) 4 Ur Epithelial Cells Rare Urine Bacteria Rare Urine Mucus Rare Stool Occult Blood Current Medications Generic Name Dose Route Start Last Admin Trade Name Freq PRN Reason Stop Dose Admin Atorvastatin Calcium 10 mg 12/03/17 22:00 12/03/17 22:42 Lipitor - PO 10 mg HS [facility] Administration Insulin Aspart 0 units 12/04/17 11:00 Novolog Vial SQ ACHS [facility] Protocol Magnesium Sulfate 2 gm 12/04/17 10:00 Magnesium Sulf 2 G/50 Ml Bag IVPB 12/04/17 10:01 ONCE ONE ASSESSMENT/PLAN 72 year-old female with a PMH significant for HTN, HLD, and NIDDM. Admitted for syncope, gastroenteritis, and bloody diarrhea. Syncope --troponins neg x 2 --12/03 Echo: LV normal, RV normal, no significant valvular pathology --ECG not suggestive of ischemic event --US carotids unremarkable --no events on telemetry --check orthostatics Bloody diarrhea --12/03 CTAP: fluid in left colon consistent with diarrheal illness --Stool culture pending salmonella/shigella organism --afebrile, WBC trending down --ID following --seen and evaluated by GI, will need outpatient f/u, colonoscopy 6 weeks Hypertension --was markedly hypotensive on arrival in ED, BP stabilized --continue to hold home lisinopril and HCTZ Hyperlipidemia --continue Lipitor NIDDM --not on medications --fingerstick BID --Novolog sliding scale coverage Hypomagnesemia --replete FEN Fluids: PO intake adequate for now, monitor closely for hypotension Electrolytes: replete as indicated Nutrition: advance to full liquids DVT prophylaxis: subq heparin, oob, ambulation Physical therapy Dispo: continues to require inpatient care. Full code.
[2017-12-04 08:15] LABS: BASO % 0.5 % (0-2.0); EOS % 1.6 % (0-4.5); HEMATOCRIT 33.1 % (32.4-45.2); HEMOGLOBIN 11.4 GM/dL (10.7-15.3); LYMPH % 20.2 % (8-40); MCH 30.5 pg (25.7-33.7); MCHC 34.3 g/dl (32.0-36.0); MEAN CELL VOLUME 88.9 fl (80-96); MEAN PLT VOLUME 9.1 fl (7.5-11.1); MONO % 6.2 % (3.8-10.2); NEUT % 71.5 % (42.8-82.8); PLATELET COUNT 276 K/MM3 (134-434); RBC 3.73 M/mm3 (3.60-5.2); RDW 14.7 % (11.6-15.6); WHITE BLOOD COUNT 10.9 K/mm3 (4.0-10.0)
[2017-12-04 08:45] LABS: ALBUMIN 3.6 g/dl (3.4-5.0); ANION GAP 5 (8-16); BILIRUBIN,TOTAL 0.5 mg/dL (0.2-1.0); BLOOD UREA NITROGEN 12 mg/dL (7-18); CALCIUM 8.9 mg/dL (8.5-10.1); CHLORIDE 107 mmol/L (98-107); CO2 29 mmol/L (21-32); CREATININE 0.8 mg/dL (0.55-1.02); GLUCOSE,RANDOM 104 mg/dL (74-106); MAGNESIUM 1.3 mg/dL (1.8-2.4); POTASSIUM 4.1 mmol/L (3.5-5.1); SGOT/AST 32 U/L (15-37); SGPT/ALT 34 U/L (12-78); SODIUM 141 mmol/L (136-145); TOT PROT 6.5 g/dl (6.4-8.2)
[2017-12-04 08:46] LABS: ALK PHOS 74 U/L (45-117)
[2017-12-04] MEDS: PANTOPRAZOLE SODIUM 40 MG VIAL IVPUSH SCH (09:13)
[2017-12-04] MEDS ORDERED: MAGNESIUM 2GM/50ML STERILE WATER IVPB IVPB ONE (10:00)
[2017-12-04] MEDS ORDERED: INSULIN SLIDING SCALE (NOVOLOG) 1 VIAL SQ SCH (11:00)
[2017-12-04] MEDS ORDERED: HEPARIN NA (PORCINE) 5,000 UNITS/ML 1ML VIAL SQ SCH (14:00)
[2017-12-04 14:58] VITALS: BP 156/75; PULSE 84; TEMP 97.4
--- NOTE | 2017-12-04 16:01 | PN ---
Progress Note, Physician History of Present Illness: No events overnight. Seen in the chair. Comfortable. Stool culture preliminary results positive - Current Medication List Current Medications: Active Medications Atorvastatin Calcium (Lipitor -) 10 mg PO HS [facility] Last Admin: 12/03/17 22:42 Dose: 10 mg Heparin Sodium (Porcine) (Heparin -) 5,000 unit SQ TID [facility] Insulin Aspart (Novolog Vial Sliding Scale -) 1 vial SQ ACHS [facility] PRN Reason: Protocol Last Admin: 12/04/17 12:02 Dose: Not Given - Objective Vital Signs: Vital Signs Temperature 97.4 F L 12/04/17 14:00 Pulse Rate 84 12/04/17 14:00 Respiratory Rate 20 12/04/17 10:00 Blood Pressure 156/75 12/04/17 14:00 O2 Sat by Pulse Oximetry (%) 98 12/04/17 09:00 Constitutional: Yes: Well Nourished, No Distress, Calm Eyes: Yes: Conjunctiva Clear Respiratory: Yes: Regular Gastrointestinal: Yes: Soft. No: Normal Bowel Sounds, Melena, Rectal Bleeding, Tenderness, Tenderness, Epigastrium Labs: CBC, BMP 12/04/17 07:50 12/04/17 07:50 INR, PTT INR 1.04 (0.82-1.09) 12/03/17 05:43 Laboratory Last Values WBC 10.9 K/mm3 (4.0-10.0) H D 12/04/17 07:50 RBC 3.73 M/mm3 (3.60-5.2) 12/04/17 07:50 Hgb 11.4 GM/dL (10.7-15.3) 12/04/17 07:50 Hct 33.1 % (32.4-45.2) 12/04/17 07:50 MCV 88.9 fl (80-96) 12/04/17 07:50 MCH 30.5 pg (25.7-33.7) 12/04/17 07:50 MCHC 34.3 g/dl (32.0-36.0) 12/04/17 07:50 RDW 14.7 % (11.6-15.6) 12/04/17 07:50 Plt Count 276 K/MM3 (134-434) 12/04/17 07:50 MPV 9.1 fl (7.5-11.1) 12/04/17 07:50 Neutrophils % 71.5 % (42.8-82.8) D 12/04/17 07:50 Lymphocytes % 20.2 % (8-40) D 12/04/17 07:50 Monocytes % 6.2 % (3.8-10.2) 12/04/17 07:50 Eosinophils % 1.6 % (0-4.5) 12/04/17 07:50 Basophils % 0.5 % (0-2.0) 12/04/17 07:50 PT with INR 11.70 SEC (9.7-13.0) 12/03/17 05:43 INR 1.04 (0.82-1.09) 12/03/17 05:43 PTT (Actin FS) 20.0 SECONDS (26.9-34.4) L 12/03/17 01:01 Sodium 141 mmol/L (136-145) 12/04/17 07:50 Potassium 4.1 mmol/L (3.5-5.1) 12/04/17 07:50 Chloride 107 mmol/L (98-107) 12/04/17 07:50 Carbon Dioxide 29 mmol/L (21-32) 12/04/17 07:50 Anion Gap 5 (8-16) L 12/04/17 07:50 BUN 12 mg/dL (7-18) 12/04/17 07:50 Creatinine 0.8 mg/dL (0.55-1.02) 12/04/17 07:50 Creat Clearance w eGFR > 60 (>60) 12/04/17 07:50 POC Glucometer 89 UNITS (80-120) 12/04/17 11:55 Random Glucose 104 mg/dL (74-106) 12/04/17 07:50 Lactic Acid 1.2 mmol/L (0.0-2.0) 12/03/17 07:45 Calcium 8.9 mg/dL (8.5-10.1) 12/04/17 07:50 Phosphorus 2.6 mg/dL (2.5-4.9) 12/03/17 05:43 Magnesium 1.3 mg/dL (1.8-2.4) L 12/04/17 07:50 Total Bilirubin 0.5 mg/dL (0.2-1.0) D 12/04/17 07:50 AST 32 U/L (15-37) 12/04/17 07:50 ALT 34 U/L (12-78) 12/04/17 07:50 Alkaline Phosphatase 74 U/L (45-117) 12/04/17 07:50 Creatine Kinase 90 IU/L (26-192) 12/02/17 19:15 Troponin I 0.02 ng/ml (0.00-0.05) 12/03/17 02:00 Total Protein 6.5 g/dl (6.4-8.2) 12/04/17 07:50 Albumin 3.6 g/dl (3.4-5.0) 12/04/17 07:50 Triglycerides 68 mg/dL (35-160) 12/03/17 05:43 Cholesterol 136 mg/dL (50-200) 12/03/17 05:43 Total LDL Cholesterol 80 mg/dL (5-100) 12/03/17 05:43 HDL Cholesterol 53 mg/dL (40-60) 12/03/17 05:43 Urine Color Straw 12/03/17 08:50 Urine Appearance Clear 12/03/17 08:50 Urine pH 5.0 (5.0-8.0) 12/03/17 08:50 Ur Specific [place] 1.008 (1.001-1.035) 12/03/17 08:50 Urine Protein Negative (NEGATIVE) 12/03/17 08:50 Urine Glucose (UA) Negative (NEGATIVE) 12/03/17 08:50 Urine Ketones Negative (NEGATIVE) 12/03/17 08:50 Urine Blood 2+ (NEGATIVE) H 12/03/17 08:50 Urine Nitrite Negative (NEGATIVE) 12/03/17 08:50 Urine Bilirubin Negative (<2.0 mg/dL) 12/03/17 08:50 Urine Urobilinogen Negative mg/dL (0.2-1.0) 12/03/17 08:50 Ur Leukocyte Esterase Trace (NEGATIVE) 12/03/17 08:50 Urine WBC (Auto) 3 /hpf (3-5) 12/03/17 08:50 Urine RBC (Auto) 4 /hpf (0-3) 12/03/17 08:50 Ur Epithelial Cells Rare /HPF (FEW) 12/03/17 08:50 Urine Bacteria Rare /hpf (NONE SEEN) 12/03/17 08:50 Urine Mucus Rare 12/03/17 08:50 Ur Random Sodium 106 MMOL/L 12/03/17 01:40 Ur Random Potassium 55.8 MMOL/L 12/03/17 01:40 Ur Random Chloride 136 MMOL/L 12/03/17 01:40 Urine Creatinine 65.0 mg/dL (20-320) 12/03/17 01:40 Stool Occult Blood Positive (NEGATIVE) 12/02/17 08:50 Blood Type O POSITIVE 12/03/17 01:01 Antibody Screen Negative 12/03/17 01:01 Problem List - Problems (1) Enterocolitis Code(s): K52.9 - NONINFECTIVE GASTROENTERITIS AND COLITIS, UNSPECIFIED (2) Diverticulosis Code(s): K57.90 - DVRTCLOS OF INTEST, PART UNSP, W/O PERF OR ABSCESS W/O BLEED (3) Acute diverticulitis Code(s): K57.92 - DVTRCLI OF INTEST, PART UNSP, W/O PERF OR ABSCESS W/O BLEED (4) Hematochezia Code(s): K92.1 - MELENA Assessment/Plan Stool for pathogenspending Colonoscopy in 4-6 weeks Discussed with the patient.
--- NOTE | 2017-12-04 16:07 | PN ---
Progress Note, Physician History of Present Illness: OOB in chair No c/o abdominal pain Small bloody BM earlier today Tolerating liquid dist No N/V No fever/ chills WBC improved Stool c/s NLF - Current Medication List Current Medications: Active Medications Atorvastatin Calcium (Lipitor -) 10 mg PO HS [facility] Last Admin: 12/03/17 22:42 Dose: 10 mg Heparin Sodium (Porcine) (Heparin -) 5,000 unit SQ TID [facility] Last Admin: 12/04/17 15:56 Dose: 5,000 unit Insulin Aspart (Novolog Vial Sliding Scale -) 1 vial SQ ACHS [facility] PRN Reason: Protocol Last Admin: 12/04/17 12:02 Dose: Not Given - Objective Vital Signs: Vital Signs Temperature 97.4 F L 12/04/17 14:00 Pulse Rate 84 12/04/17 14:00 Respiratory Rate 20 12/04/17 10:00 Blood Pressure 156/75 12/04/17 14:00 O2 Sat by Pulse Oximetry (%) 98 12/04/17 09:00 Constitutional: Yes: No Distress Eyes: Yes: Conjunctiva Clear Cardiovascular: Yes: Regular Rate and Rhythm, S1 Respiratory: Yes: CTA Bilaterally Gastrointestinal: Yes: Normal Bowel Sounds, Soft. No: Tenderness Labs: CBC, BMP 12/04/17 07:50 12/04/17 07:50 INR, PTT INR 1.04 (0.82-1.09) 12/03/17 05:43 Assessment/Plan Enterocolitis Rectal bleeding S/P syncope Clinically stable for discharge off antibtiotic therapy Outpatient GI follow up
--- NOTE | 2017-12-04 16:27 | DS ---
Physical Exam: SUBJECTIVE: Patient seen and examined oob to chair. Feels well, wants to go home. OBJECTIVE: Vital Signs Period Temp Pulse Resp BP Sys/Up Pulse Ox Last 24 Hr 97.4 F-98.6 F 60-94 18-20 122-156/63-86 98-98 PHYSICAL EXAM GENERAL: The patient is awake, alert, and fully oriented, in no acute distress. LUNGS: Breath sounds equal, clear to auscultation bilaterally, no wheezes, no crackles, no accessory muscle use. HEART: Regular rate and rhythm, S1, S2 without murmur, rub or gallop. ABDOMEN: Soft, nontender, nondistended, normoactive bowel sounds EXTREMITIES: 2+ pulses, warm, well-perfused, no edema. NEUROLOGICAL: Cranial nerves II through XII grossly intact. Normal speech, steady gait LABS Laboratory Results - last 24 hr 12/04/17 12/04/17 12/04/17 07:50 07:50 11:55 WBC 10.9 H D RBC 3.73 Hgb 11.4 Hct 33.1 MCV 88.9 MCH 30.5 MCHC 34.3 RDW 14.7 Plt Count 276 MPV 9.1 Neutrophils % 71.5 D Lymphocytes % 20.2 D Monocytes % 6.2 Eosinophils % 1.6 Basophils % 0.5 Sodium 141 Potassium 4.1 Chloride 107 Carbon Dioxide 29 Anion Gap 5 L BUN 12 Creatinine 0.8 Creat Clearance w eGFR > 60 POC Glucometer 89 Random Glucose 104 Calcium 8.9 Magnesium 1.3 L Total Bilirubin 0.5 D AST 32 ALT 34 Alkaline Phosphatase 74 Total Protein 6.5 Albumin 3.6 HOSPITAL COURSE: Date of Admission:12/02/17 Date of Discharge: 12/04/17 Pre hospital course Patient is a 72 yo F with a PMHx of HTN, presented to the ED after a syncopal episode after eating dinner at a restaurant. Patient said she finished eating dinner (clams) and was on her second glass of wine when she started having the "sweats". She said she felt chills and was nauseas and suddenly started having diarrhea and vomiting with abdominal pain. She later felt dizzy and had a syncopal episode which she said lasted around 30 seconds. Patient also noticed BRBPR once she arrived to the hospital. Patient also reports not drinking a lot of water lately. 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 She denies sob,chest pain, tongue biting, loss of bladder control, lightheadedness, dysuria, recent travel , sick contacts. Last colonoscopy was 2 years ago where she was told to come back in 5 years. 72 year-old female with a PMH significant for HTN, HLD, and NIDDM. Admitted for syncope, gastroenteritis, and bloody diarrhea. ER course was notable for: (1) BP 66/39 (2) CT head: unremarkable (3) Blood mixed with stool as per ED resident Subsequent hospital course by problem list Syncope --troponins neg x 2 --12/03 Echo: LV normal, RV normal, no significant valvular pathology --ECG not suggestive of ischemic event --US carotids unremarkable --no events on telemetry --was markedly hypotensive on arrival in ED, BP stabilized with IV fluids --not orthostatic on date of discharge Bloody diarrhea --one very small amount of diarrhea today with bright red blood; no other episodes since ED --12/03 CTAP: fluid in left colon consistent with diarrheal illness --Stool culture pending salmonella/shigella organism --afebrile, WBC trending down, no antibiotics given --seen and evaluated by GI, recommends colonoscopy 6 weeks Hypertension --held home lisinopril and HCTZ due to initial hypotension, can resume on discharge Hyperlipidemia --continue Lipitor NIDDM --not on medications --fingerstick BID --Novolog sliding scale coverage Hypomagnesemia --repleted Minutes to complete discharge: 35 Discharge Summary Reason For Visit: HEMORRHAGIC DIARRHEA,SYNCOPE Current Active Problems Acute diverticulitis (Acute) Diverticulosis (Acute) Enterocolitis (Acute) GI bleeding (Acute) Gastroenteritis (Acute) Hematochezia (Acute) Syncope (Acute) Condition: Stable - Instructions Diet, Activity, Other Instructions: Please follow up with your primary care provider, Dr. Shanel Mitchell. It is recommended you follow up for a colonoscopy in 6 weeks. If you choose to see Dr. Beach his contact information is enclosed. Return to the emergency department for any new or worsening symptoms. - Home Medications Comprehensive Discharge Medication List: Ambulatory Orders Lisinopril/Hydrochlorothiazide [Lisinopril-Hctz 10-12.5 mg Tab] 0.5 tab PO DAILY 12/03/17 Simvastatin 10 mg PO DAILY 12/03/17 This patient is new to me today: Yes Date on this admission: 12/04/17 Emergency Visit: Yes ED Registration Date: 12/02/17 Care time: The patient presented to the Emergency Department on the above date and was hospitalized for further evaluation of their emergent condition. Critical Care patient: No - Discharge Referral Referred to [facility] Med P.C.: No
== END 2017-12-04 17:44 | disposition home or self-care (01) | DRG 392 ==
LOC: JER 19:23 → JERBED 23:17 → J4W 12-03 17:20
PROVIDERS: ADMIT Internal Medicine; ATTEND Nurse Practitioner Acute Care
DX: K52.9 Noninfective gastroenteritis and colitis, unspecified (principal); N17.9 Acute kidney failure, unspecified; K92.1 Melena; E11.9 Type 2 diabetes mellitus without complications; I10 Essential (primary) hypertension; E78.00 Pure hypercholesterolemia, unspecified; I95.9 Hypotension, unspecified; R55 Syncope and collapse; R91.1 Solitary pulmonary nodule; E87.6 Hypokalemia; D72.829 Elevated white blood cell count, unspecified; K57.90 Diverticulosis of intestine, part unspecified, without perforation or abscess without bleeding; E83.42 Hypomagnesemia
CPT/HCPCS: 36415; 70450-TC; 71046-TC-FY; 74176-TC; 80053; 80061; 81003; 81015; 82272; 82436; 82550; 82570; 82962; 83605; 83721; 83735; 84100; 84133; 84300; 84484; 85025; 85027; 85610; 85730; 86850; 86900; 86901; 87040; 87045; 87046; 87086; 87205; 87324; 87449; 93005; 93010; 93306-TC; 93880-TC; 99285-25; J1644; J7030